=== PATIENT | male | born 1945 | race Caucasian/White ===

== ENCOUNTER 2018-04-21 10:41 | Day surgery (SDC) | payer MEDICARE, OTHER ==
[~2018-04-21 10:41] MED LIST: ACETAMINOPHEN 1,000 MG/100 ML BTL IV ONE; CEFAZOLIN 2 Gram 2 GM/50 ML BAG IVPB ONE
[2018-04-21] MEDS ORDERED: PROPOFOL 10 MG/ML VIAL IV ONE (10:42)
[2018-04-21] MEDS ORDERED: SEVOFLURANE 250 ML INH ONE (10:42)
[2018-04-21] MEDS ORDERED: BUPIVACAINE 0.5% W/EPI MPF 30 ML VIAL IVP ONE (10:42)
[2018-04-21] MEDS ORDERED: LIDOCAINE 2% MDV (20MG/ML) 20ML VIAL IV ONE (10:42)
[2018-04-21] MEDS ORDERED: EPHEDRINE SULFATE 50 MG/ML ML IV ONE (10:42)
[2018-04-21 10:55] LABS: BASO % 0.7 % (0-6); EOS % 2.5 % (0-6); GRAN % 70.6 % (47-80); HEMATOCRIT 43.3 % (42.0-52.0); LYMPH % 16.4 % (16-45); MEAN CORPUSCULAR HEMOGLOBIN 33.9 pg (27-33); MEAN CORPUSCULAR HGB CONC 34.6 g/dl (32-36); MEAN PLATELET VOLUME 10.1 fl (7.4-10.4); MONO % 9.8 % (0-9); PLATELET COUNT 232 K/uL (130-400); RED BLOOD COUNT 4.42 M/uL (4.40-5.70); RED CELL DISTRIBUTION WIDTH 13.8 % (11.5-14.5); WHITE BLOOD COUNT W/O DIFF 10.5 K/uL (4.2-12.2)
[2018-04-21 11:10] LABS: CREATININE 1.7 mg/dL (0.7-1.2)
--- NOTE | 2018-04-22 09:01 | Operative Note ---
DATE OF SURGERY: 04/21/2018 PREOPERATIVE DIAGNOSIS: Chronic left greater trochanteric bursitis. POSTOPERATIVE DIAGNOSIS: Chronic left greater trochanteric bursitis. OPERATION: Removal of left greater trochanteric bursa. Staff Surgeon: Shashank Jesus MD Anesthesia: General. Preparation: Chloraprep. Individual Considerations: None. PROCEDURE: The patient was taken to the operating room and placed supine on the operating room table. He had a successful induction of general anesthetic. He was then placed on his side. His left hip area was prepped and draped in the usual fashion. The patient had about a 10 cm incision directly over the trochanter and then curving a little bit posteriorly to follow the abductor. Sharp dissection carried down through skin and subcutaneous tissue. Prior to this, I did infiltrate it with 0.5% Marcaine with epinephrine. The tensor gluteal fascia was opened along the entire length near the bursal space. The bursa was moderately scarred. I removed it. There was some necrotic abductor tissue near the trochanter. This was also debrided. After irrigation, I placed an 18-gauge spinal needle deep to the fascia, closed the fascia with multiple running #1 Vicryl. Subcu was closed in layers with 2-0 plus Vicryl. Skin was closed with amaury. I then placed about 10 mL of 0.5% Marcaine with epinephrine along with 40 mg of Depo-Medrol into the bursal space and a sterile bulky compressive Aquacel-type dressing was applied. The patient tolerated procedure well. Needle and sponge counts were correct. Estimated blood loss was minimal, and he was taken back to recovery in good condition. There were no complications. DESEAN
== END 2018-04-21 14:30 | disposition home or self-care (01) ==
LOC: SUR 10:41
PROVIDERS: ATTEND Orthopaedic Surgery
DX: M70.62 Trochanteric bursitis, left hip (principal); I10 Essential (primary) hypertension; E78.00 Pure hypercholesterolemia, unspecified; G47.33 Obstructive sleep apnea (adult) (pediatric)
CPT/HCPCS: 27062; 01250; 85025; 80048; J0690